=== PATIENT | male | born 1950 | race Caucasian/White ===

== ENCOUNTER 2020-08-29 23:53 | Emergency (ER) | payer OTHER ==
[~2020-08-29] VITALS: Ht 188 cm; Wt 63.5 kg
[2020-08-30] VITALS: BP 119/89
--- NOTE | 2020-08-30 00:10 | NUR ---
alejo speaking to the pt for file report
== END 2020-08-30 01:41 | disposition home or self-care (01) ==
LOC: ER 23:56
DX: S00.83XA Contusion of other part of head, initial encounter (principal); S50.02XA Contusion of left elbow, initial encounter; S70.02XA Contusion of left hip, initial encounter; Z59.0 Homelessness; Y08.89XA Assault by other specified means, initial encounter; Y93.89 Activity, other specified; Y92.89 Other specified places as the place of occurrence of the external cause; Y99.8 Other external cause status